=== PATIENT | male | born 1995 | race Caucasian/White ===

== ENCOUNTER 2017-01-30 11:54 | Emergency (ER) | payer BC ==
[2017-01-30 12:44] VITALS: PULSE 79; RESP 16; TEMP 97.7; O2SAT 98
[2017-01-30 12:45] VITALS: BP 120/69
== END 2017-01-30 16:23 | disposition left against medical advice (07) ==
DX: Z53.21 Procedure and treatment not carried out due to patient leaving prior to being seen by health care provider (principal)

== ENCOUNTER 2017-07-05 13:24 | Emergency (ER) | payer BC ==
[2017-07-05 13:27] VITALS: PULSE 92; TEMP 98.1; O2SAT 96
--- NOTE | 2017-07-05 14:11 | EDPHY ---
H & P Time Seen by Provider: 07/05/17 14:09 HPI/ROS: Chief complaint. Chest pain HPI. 22-year-old male here with tightness left anterior chest occasionally radiating to his left arm for 1 week. It has been constant. It is not worse with breathing, exertion, position. He has no shortness of breath. He has a history of GERD and he feels that this has some similar components that he has increased burping which is typical. However his previous GERD is not lasted so long. He has no change with eating. No abdominal pain nausea vomiting diarrhea. No unusual leg pain or swelling. No recent travel. Radiation to his left arm seems to be worse when he is smoking cigarettes. ROS Constitutional. no fever/chills, no weakness Eyes. no problems with vision ENT. no sore throat, no nasal drainage Cardiovascular. Left chest tightness Respiratory. no shortness of breath, no cough Abdominal. no abdominal pain, no nausea/vomiting, no diarrhea . no problems urinating MS. no calf pain/swelling, no neck/back pain, no joint pain Skin. no rash Lymph. no swollen glands Neuro. no headache, no dizziness, no difficulty walking or with speech Past Medical/Surgical History: GERD on Prilosec Family history negative for early coronary artery disease Social History: Single, daily smoker, no alcohol Smoking Status: Current some day smoker Physical Exam: General Appearance: Alert well-developed male mild distress. Vital signs are stable Eyes: Pupils equal and round no pallor or injection. ENT, Mouth: Mucous membranes are moist. Respiratory: There are no retractions, lungs are clear to auscultation. Cardiovascular: Regular rate and rhythm. Gastrointestinal: Abdomen is soft and nontender, no masses, bowel sounds normal. Neurological: Awake and alert, sensory and motor exams grossly normal. Skin: Warm and dry, no rashes. Musculoskeletal: Neck is supple nontender. Extremities symmetrical, full range of motion. Psychiatric: Patient is oriented X 3, there is no agitation. Constitutional: Initial Vital Signs Temperature (C) 36.7 C 07/05/17 13:26 Heart Rate 92 07/05/17 13:26 Respiratory Rate 16 07/05/17 13:26 Blood Pressure 146/98 H 07/05/17 13:26 O2 Sat (%) 96 07/05/17 13:26 O2 Delivery Mode Room Air Allergies/Adverse Reactions: No Known Allergies Allergy (Unverified 04/22/16 17:19) Home Medications: Medication Instructions Recorded [facility] 07/05/17 Medical Decision Making - Diagnostics EKG Interpretation: EKG interpreted by me shows normal sinus rhythm with normal interval and axis. QRS is normal there is no significant ST elevation or depression. No arrhythmia. Procedures: IV normal saline, monitor GI cocktail ED Course/Re-evaluation: Re-evaluation at 3:20 p.m.. Patient got good relief from the GI cocktail. He continues to have some burping but he says he feels much better and the chest discomfort is relieved within about 5 min of the GI cocktail. Patient and I discussed laboratory and EKG evaluation. We discussed treatment plan including criteria for return importance of follow-up and further evaluation. He expresses understanding and agreement Differential Diagnosis: I considered acute coronary syndrome and pulmonary embolus. However symptoms are consistent with patient's previous GERD. His symptoms are resolved with symptomatic treatment with GI cocktail. The patient has had a week of chest discomfort that is continuous. Normal troponin effectively rules out acute coronary syndrome - Data Points Laboratory Results: Laboratory Results 07/05/17 14:14 07/05/17 14:14 07/05/17 07/05/17 07/05/17 14:14 14:14 14:14 WBC 5.12 10^3/uL 10^3/uL (3.80-9.50) RBC 4.96 10^6/uL 10^6/uL (4.40-6.38) Hgb 15.4 g/dL g/dL (13.7-17.5) Hct 43.3 % % (40.0-51.0) MCV 87.3 fL fL (81.5-99.8) MCH 31.0 pg pg (27.9-34.1) MCHC 35.6 g/dL g/dL (32.4-36.7) RDW 11.9 % % (11.5-15.2) Plt Count 318 10^3/uL 10^3/uL (150-400) MPV 9.2 fL fL (8.7-11.7) Neut % (Auto) 59.7 % % (39.3-74.2) Lymph % (Auto) 27.9 % % (15.0-45.0) [place] % (Auto) 10.4 % % (4.5-13.0) Eos % (Auto) 0.8 % % (0.6-7.6) Baso % (Auto) 0.8 % % (0.3-1.7) Nucleat RBC Rel Count 0.0 % % (0.0-0.2) Absolute Neuts (auto) 3.06 10^3/uL 10^3/uL (1.70-6.50) Absolute Lymphs (auto) 1.43 10^3/uL 10^3/uL (1.00-3.00) Absolute Monos (auto) 0.53 10^3/uL 10^3/uL (0.30-0.80) Absolute Eos (auto) 0.04 10^3/uL 10^3/uL (0.03-0.40) Absolute Basos (auto) 0.04 10^3/uL 10^3/uL (0.02-0.10) Absolute Nucleated RBC 0.00 10^3/uL 10^3/uL (0-0.01) Immature Gran % 0.4 % % (0.0-1.1) Immature Gran # 0.02 10^3/uL 10^3/uL (0.00-0.10) D-Dimer < 0.27 ug/mLFEU ug/mLFEU (0.00-0.50) Sodium 142 mEq/L mEq/L (135-145) Potassium 4.5 mEq/L mEq/L (3.5-5.2) Chloride 107 mEq/L mEq/L (97-110) Carbon Dioxide 22 mEq/l mEq/l (22-31) Anion Gap 13 mEq/L mEq/L (8-16) BUN 15 mg/dL mg/dL (7-23) Creatinine 1.0 mg/dL mg/dL (0.7-1.3) Estimated GFR > 60 Glucose 101 mg/dL H mg/dL (70-100) Calcium 9.6 mg/dL mg/dL (8.5-10.4) Troponin I < 0.012 ng/mL ng/mL (0.000-0.034) Lipase 54 IU/L IU/L (23-300) Medications Given: Discontinued Medications Al Hydroxide/Mg Hydroxide (Maalox Susp) 30 ml PO ONCE ONE Stop: 07/05/17 14:25 Last Admin: 07/05/17 14:39 Dose: 30 ml Sodium Chloride (Ns) 1,000 mls @ 0 mls/hr IV EDNOW ONE; Wide Open PRN Reason: Protocol Stop: 07/05/17 14:25 Last Admin: 07/05/17 14:39 Dose: 1,000 mls Lidocaine (Lidocaine 2% Viscous) 15 ml PO ONCE ONE Stop: 07/05/17 14:25 Last Admin: 07/05/17 14:39 Dose: 15 ml Departure - Departure Disposition: Home, Routine, Self-Care Clinical Impression: GERD (gastroesophageal reflux disease) Qualifiers: Esophagitis presence: esophagitis presence not specified Qualified Code(s): K21.9 - Gastro-esophageal reflux disease without esophagitis Condition: Good Instructions: Gastroesophageal Reflux Disease (ED) Additional Instructions: Continue your Prilosec. Supplement especially at bedtime with antacid treatment such as Maalox or Mylanta. Return for worsening symptoms. Re- evaluation in 2 days if not improving Referrals: Izzy Burnett MD [Medical Doctor] - 2-3 days, if not improved
[2017-07-05] MEDS ORDERED: NS 1,000 ML IV ONE (14:24)
[2017-07-05] MEDS ORDERED: MAG HYDROX/AL HYDROX/SIMETH 30 ML UDCUP PO ONE (14:24)
[2017-07-05] MEDS ORDERED: LIDOCAINE 2% VISCOUS 15 ML UDCUP PO ONE (14:24)
[2017-07-05 14:34] LABS: PLATELET COUNT 318 10^3/uL (150-400)
[2017-07-05 16:07] VITALS: BP 113/56; RESP 63
--- NOTE | 2017-07-06 17:06 | CPEKG ---
Heart Rate: 83 RR Interval: 723 P-R Interval: 128 QRSD Interval: 94 QT Interval: 360 QTC Interval: 423 P [place]: 56 QRS [place]: 40 T Wave [place]: 24 EKG Severity - NORMAL ECG - EKG Impression: SINUS RHYTHM Electronically Signed By: Vasquez Love 08-Jul-2017 09:37:19
== END 2017-07-05 16:11 | disposition home or self-care (01) ==
DX: K21.9 Gastro-esophageal reflux disease without esophagitis (principal); E86.9 Volume depletion, unspecified; F17.200 Nicotine dependence, unspecified, uncomplicated

== ENCOUNTER 2017-08-14 11:10 | Emergency (ER) | payer BC ==
[2017-08-14 11:16] VITALS: BP 119/69; PULSE 65; RESP 16; TEMP 98.1; O2SAT 97
--- NOTE | 2017-08-14 11:25 | EDPHY ---
H & P Stated Complaint: Knee to L post head on Sunday;no LOC;intermittent numbness L side of face Time Seen by Provider: 08/14/17 11:24 HPI/ROS: HPI: This is a 22-year-old male who presents with Chief Complaint: Knee to L post head on Sunday;no LOC;intermittent numbness L side of face Location: Left trapezius/posterior ear Quality: Injury Duration: 3 days ago Signs and Symptoms: no fever, no nausea, no vomiting, no photophobia, no noise sensitivity, no neck stiffness, no ear pain, no tinnitus, no nasal congestion, no sinus pressure, no weakness, no radiation, no numbness Timing: Acute Severity: [id number] Context: Patient presents with complaints of left lateral neck soreness, nonradiating in nature accompanied by tenderness to palpation behind his left posterior ear status post accidentally hitting his with his friends layer rough housing in the park on Sunday. History of a 3 concussions in the past. Denies LOC/dizziness/nausea/vomiting/amnesia. Patient was ambulatory at the scene and continued to play sports in the park. He presents to the emergency room for evaluation as he has had continued soreness behind his left posterior ear and his left lateral neck. He has tried no [id number] medications. Modifying Factors: None Comment: ROS: see HPI Constitutional: No fever, no chills, no weight loss Eyes: No blurred vision Respiratory: No shortness of breath, no cough Cardiovascular: No chest pain, no palpitations Gastrointestinal: No nausea, no vomiting, no diarrhea, no hematemesis, no blood in stool Genitourinary: No dysuria, no blood in urine Extremities: No myalgias, no edema Neurologic: No weakness, no numbness Skin: No rashes, no petechiae Hematologic: No bruising, no bleeding MEDICAL/SURGICAL/SOCIAL HISTORY: Medical history: GERD Surgical history: Denies Social history: Student. CONSTITUTIONAL: Well-developed, well-nourished pleasant adult male, awake and alert, no obvious distress HEENT: Atraumatic and normocephalic. Tympanic membranes clear and intact. NECK: supple, moderate left trapezius reproducible tenderness in multiple areas ; no midline tenderness, flexion 45 degrees, extension 45 degrees, right and left lateral flexion 45 degrees. No meningismus. Cardiovascular: Normal S1/S2, regular rate, regular rhythm, without murmur rub or gallop. PULMONARY/CHEST: Symmetrical and nontender. no crepitus. Clear to auscultation bilaterally. Good air movement. No accessory muscle usage. ABDOMEN: Soft, nondistended, nontender, no ecchymosis. PELVIC: no pain with rocking; bilateral hips flexion 125 degrees, extension 30 degrees, with no pain internal rotation and no pain external rotation. BACK: No midline tenderness, no paraspinous spasm, deep tendon reflexes 2/2, no pain with straight leg raise EXTREMITIES: 2/2 pulses, strength 5/5, DIP/PIP/MCP flexion/extension intact with good light touch sensation. no deformities, no clubbing, no cyanosis or edema. NEUROLOGICAL: no focal neuro deficits. GCS 15. Light touch sensation intact. Cranial nerves 2-12 grossly intact. SKIN: Warm and dry, no erythema. no rash. Good capillary refill. Source: Patient Exam Limitations: No limitations - Personal History Current Tetanus Diphtheria and Acellular Pertussis (TDAP): Yes Tetanus Vaccine Date: < 10 years - Medical/Surgical History Hx Asthma: No Hx Chronic Respiratory Disease: No Hx Diabetes: No Hx Cardiac Disease: No Hx Renal Disease: No Hx Cirrhosis: No Hx Alcoholism: No Hx HIV/AIDS: No Hx Splenectomy or Spleen Trauma: No Other PMH: GERD. concussion - Social History Smoking Status: Current some day smoker Constitutional: Initial Vital Signs Temperature (C) 36.7 C 08/14/17 11:10 Heart Rate 65 08/14/17 11:10 Respiratory Rate 16 08/14/17 11:10 Blood Pressure 119/69 08/14/17 11:10 O2 Sat (%) 97 08/14/17 11:10 Allergies/Adverse Reactions: No Known Allergies Allergy (Verified 08/14/17 11:12) Home Medications: Medication Instructions Recorded Cyclobenzaprine [Flexeril 10 MG 10 mg PO TID PRN #10 tab 08/14/17 (*)] Omeprazole Magnesium [Prilosec] 10 mg PO 08/14/17 Medical Decision Making ED Course/Re-evaluation: No neurological deficits. Does not meet criteria per [place] Head CT/Cervical CT guidelines for imaging. Discussed with patient and he politely declines Head CT/Cervical CT scan. No signs of neurovascular compromise/tenting of skin/compartment syndrome/ extremities and joints examined above and below area of concern and are neurovascularly intact/TM rupture. Trapezius muscle strain/spasm noted on examination; given prescription for Flexeril would benefit for patient to follow up with concussion clinic as this would be his 3rd or 4th concussion. Concussion precautions advised. This patient was seen under the supervision of my secondary supervising physician. I evaluated care for this patient independently. Differential Diagnosis: Head injury including but not limited to concussion, skull fracture, intraparenchymal contusion, subarachnoid, subdural and epidural hematoma. Departure - Departure Disposition: Home, Routine, Self-Care Clinical Impression: Concussion Qualifiers: Encounter type: initial encounter Loss of consciousness presence/duration: without LOC Qualified Code(s): S06.0X0A - Concussion without loss of consciousness, initial encounter Head injury, closed, without LOC Qualifiers: Encounter type: initial encounter Qualified Code(s): S09.90XA - Unspecified injury of head, initial encounter Condition: Good Instructions: Post Concussion Syndrome (ED), Sports Concussion (ED) Additional Instructions: Observe concussion precautions. Please refrain from sports or contact activity until all symptoms have resolved. Drink plenty of fluids and rest as much as possible. Avoid eye strain wear sunglasses in the sunlight. Take Tylenol 650 mg every 4 hours and/or Ibuprofen 600 mg every 8 hours with food as needed for pain. Take Flexeril every 8 hr as needed for muscle spasms. Perform gentle stretching exercises of your neck muscles. It would benefit you to follow up with the concussion clinic. Return to the ER immediately if you have progressive headaches, neurologic deficits, gait abnormality, visual disturbance, slurred speech, or any other symptom that concerns you. Referrals: Danyelle Ramires MD [Medical Doctor] - As per Instructions Prescriptions: Cyclobenzaprine [Flexeril 10 MG (*)] 10 mg PO TID PRN #10 tab PRN Reason: Spasms
== END 2017-08-14 11:48 | disposition home or self-care (01) ==
DX: S06.0X0A Concussion without loss of consciousness, initial encounter (principal); F17.200 Nicotine dependence, unspecified, uncomplicated; W51.XXXA Accidental striking against or bumped into by another person, initial encounter; Y99.8 Other external cause status; Y93.83 Activity, rough housing and horseplay

== ENCOUNTER 2017-08-22 18:40 | Emergency (ER) | payer BC ==
--- NOTE | 2017-08-22 19:18 | EDPHY ---
H & P Time Seen by Provider: 08/22/17 19:06 HPI/ROS: CHIEF COMPLAINT: Left arm and left facial numbness HISTORY OF PRESENT ILLNESS: Patient is a 20-year-old male who presents emergency department with left arm left facial numbness. The patient states his left arm as intermittently become numb over the past few months. His left face has become numb over the past 2 weeks. The symptoms are intermittent. There are periods time he feels perfectly well. Patient does state that last week he was diagnosed with a concussion. Patient denies any headache. He has no weakness. No visual change. Patient has had no eye pain. No incoordination. REVIEW OF SYSTEMS: My complete review of systems is negative except as mentioned in the HPI. Past Medical/Surgical History: Includes concussion, GERD Past surgical history: Tonsillectomy Social history: Patient smokes cigarettes occasionally. He drinks alcohol intermittently. Occasionally uses THC. Smoking Status: Current some day smoker Physical Exam: Vitals noted GENERAL: Well-appearing, in no acute distress, alert. HEENT: Eyes normal to inspection, normal pharynx, no signs of dehydration. NECK: No thyromegaly, no lymphadenopathy, supple. RESPIRATORY: Clear to auscultation bilaterally, no rales, rhonchi or wheezing. CVS: Regular rate and rhythm, no rubs, murmurs, or gallops. ABDOMEN: Soft, nontender, nondistended, no organomegaly. BACK: Normal to inspection, no CVA tenderness. SKIN: Normal color, no rash, warm, dry. No pallor. EXTREMITIES: No pedal edema, no calf tenderness, no Homans sign or cords, no joint swelling. NEURO/PSYCH: Higher functions: Alert and Oriented x3. Normal speech and cognition. Normal mood and affect. Cranial nerves: Normal as tested. Cerebellar: Normal as tested. Good finger to nose, good [id number], normal gait. Peripheral exam: Normal motor exam. Normal sensation. Normal reflexes. Constitutional: Initial Vital Signs Temperature (C) 36.7 C 08/22/17 18:50 Heart Rate 78 08/22/17 18:50 Respiratory Rate 18 08/22/17 18:50 Blood Pressure 124/71 H 08/22/17 18:50 O2 Sat (%) 99 08/22/17 18:50 O2 Delivery Mode Room Air Allergies/Adverse Reactions: No Known Allergies Allergy (Verified 08/22/17 18:49) Home Medications: Medication Instructions Recorded Cyclobenzaprine [Flexeril 10 MG 10 mg PO TID PRN #10 tab 08/14/17 (*)] Omeprazole Magnesium [Prilosec] 10 mg PO 08/14/17 Medical Decision Making ED Course/Re-evaluation: In the emergency department discussed possible etiologies with the patient. I answered all his questions. Because he had a recent head trauma and numbness I will order head CT. I discussed this with the patient. Head CT: Please refer the dictated report. No acute disease noted. I discussed the results with the patient. I answered all his questions. He is given follow-up with Neurology. He will call make an appointment. Differential Diagnosis: My differential includes but is not limited to subarachnoid hemorrhage, subdural hematoma, epidural hematoma, CVA, dissection, aneurysm, MS Departure - Departure Disposition: Home, Routine, Self-Care Clinical Impression: Paresthesias Condition: Good Instructions: Paresthesia (ED) Additional Instructions: You need close follow-up with Neurology. Call tomorrow morning to make the appointment. Return to the emergency department with worsening symptoms or concerns. Referrals: Jeyson Mercado MD [Medical Doctor] - 5-7 days, call for appt.
[2017-08-22 20:28] VITALS: BP 132/76; PULSE 86; RESP 16; TEMP 99.1; O2SAT 95
== END 2017-08-22 20:27 | disposition home or self-care (01) ==
DX: R20.2 Paresthesia of skin (principal); F17.210 Nicotine dependence, cigarettes, uncomplicated

== ENCOUNTER 2017-08-25 14:56 | Emergency (ER) | payer BC ==
[2017-08-25 15:08] VITALS: O2SAT 98
--- NOTE | 2017-08-25 17:17 | EDPHY ---
H & P Time Seen by Provider: 08/25/17 17:02 HPI/ROS: CHIEF COMPLAINT: Weakness HISTORY OF PRESENT ILLNESS: Patient is a 22-year-old male who presents emergency department with progressive extremity weakness. He was seen in the emergency department by me recently. Please refer the dictated report. He followed up with Neurology yesterday. He was going to have an outpatient MRI per his report. Today he felt as though his initial weakness which was in his left arm is now progressed to his right arm. He off so feels as though all his extremities feel weak"like I just worked out." He has no visual change. No headache. No fever chills. No recent trauma. REVIEW OF SYSTEMS: My complete review of systems is negative except as mentioned in the HPI. Past Medical/Surgical History: Includes GERD, concussion Smoking Status: Current some day smoker Physical Exam: Vitals noted GENERAL: Well-appearing, in no acute distress, alert. HEENT: Eyes normal to inspection, normal pharynx, no signs of dehydration. NECK: No thyromegaly, no lymphadenopathy, supple. RESPIRATORY: Clear to auscultation bilaterally, no rales, rhonchi or wheezing. CVS: Regular rate and rhythm, no rubs, murmurs, or gallops. ABDOMEN: Soft, nontender, nondistended, no organomegaly. BACK: Normal to inspection, no CVA tenderness. SKIN: Normal color, no rash, warm, dry. No pallor. EXTREMITIES: No pedal edema, no calf tenderness, no Homans sign or cords, no joint swelling. NEURO/PSYCH: Higher functions: Alert and Oriented x3. Normal speech and cognition. Normal mood and affect. Cranial nerves: Normal as tested. Cerebellar: Normal as tested. Good finger to nose, good [id number], normal gait. Peripheral exam: Normal motor exam. Normal sensation. Normal reflexes. Constitutional: Initial Vital Signs Temperature (C) 37.1 C 08/25/17 15:06 Heart Rate 95 08/25/17 15:06 Respiratory Rate 18 08/25/17 15:06 Blood Pressure 122/80 H 08/25/17 15:06 O2 Sat (%) 98 08/25/17 15:06 O2 Delivery Mode Room Air Allergies/Adverse Reactions: No Known Allergies Allergy (Verified 08/25/17 15:05) Home Medications: Medication Instructions Recorded Cyclobenzaprine [Flexeril 10 MG 10 mg PO TID PRN #10 tab 08/14/17 (*)] Omeprazole Magnesium [Prilosec] 10 mg PO 08/14/17 Medical Decision Making - Diagnostics Imaging Results: Imaging Impressions Brain MRI 08/25/17 17:17 Impression: Normal MRI of the brain without and with contrast. Results called and discussed with Dr. Jazmín Cardenas at 08/25/2017 18:36. Cervical Spine MRI 08/25/17 17:17 Impression: Normal MRI cervical spine without and with contrast. ED Course/Re-evaluation: In the emergency department I discussed possible etiologies with the patient. I discussed case briefly with Dr. Mercado from Neurology. He recommended the patient undergo MRI imaging with without contrast. MRI of the brain/MRI C-spine: Please refer the dictated report by Dr. Sumner. No acute disease noted. I discussed the results with Dr. Mercado. He recommended the patient be discharged home for follow-up. I rechecked the patient and discussed his results. I answered all his questions. He had no focal findings on his exam. He is given warnings prior to leaving. He will return with worsening symptoms. Differential Diagnosis: My differential includes but is not limited to CVA, MS, peripheral neuropathy, Guillain-Seanor, demyelinating disease - Data Points Laboratory Results: Laboratory Results 08/25/17 18:30 08/25/17 18:30 08/25/17 08/25/17 18:30 18:30 WBC 7.68 10^3/uL 10^3/uL (3.80-9.50) RBC 5.04 10^6/uL 10^6/uL (4.40-6.38) Hgb 15.7 g/dL g/dL (13.7-17.5) Hct 43.8 % % (40.0-51.0) MCV 86.9 fL fL (81.5-99.8) MCH 31.2 pg pg (27.9-34.1) MCHC 35.8 g/dL g/dL (32.4-36.7) RDW 11.6 % % (11.5-15.2) Plt Count 347 10^3/uL 10^3/uL (150-400) MPV 8.8 fL fL (8.7-11.7) Neut % (Auto) 63.4 % % (39.3-74.2) Lymph % (Auto) 27.9 % % (15.0-45.0) [place] % (Auto) 7.2 % % (4.5-13.0) Eos % (Auto) 0.8 % % (0.6-7.6) Baso % (Auto) 0.4 % % (0.3-1.7) Nucleat RBC Rel Count 0.0 % % (0.0-0.2) Absolute Neuts (auto) 4.88 10^3/uL 10^3/uL (1.70-6.50) Absolute Lymphs (auto) 2.14 10^3/uL 10^3/uL (1.00-3.00) Absolute Monos (auto) 0.55 10^3/uL 10^3/uL (0.30-0.80) Absolute Eos (auto) 0.06 10^3/uL 10^3/uL (0.03-0.40) Absolute Basos (auto) 0.03 10^3/uL 10^3/uL (0.02-0.10) Absolute Nucleated RBC 0.00 10^3/uL 10^3/uL (0-0.01) Immature Gran % 0.3 % % (0.0-1.1) Immature Gran # 0.02 10^3/uL 10^3/uL (0.00-0.10) Sodium 143 mEq/L mEq/L (135-145) Potassium 3.9 mEq/L mEq/L (3.5-5.2) Chloride 110 mEq/L mEq/L (97-110) Carbon Dioxide 20 mEq/l L mEq/l (22-31) Anion Gap 13 mEq/L mEq/L (8-16) BUN 11 mg/dL mg/dL (7-23) Creatinine 0.9 mg/dL mg/dL (0.7-1.3) Estimated GFR > 60 Glucose 81 mg/dL mg/dL (70-100) Calcium 9.7 mg/dL mg/dL (8.5-10.4) Departure - Departure Disposition: Home, Routine, Self-Care Clinical Impression: Weakness, Paresthesias Condition: Good Instructions: Paresthesia (ED) Additional Instructions: The MRI of your brain and C-spine were negative. Follow up with Dr. Mercado from Neurology. Referrals: Jeyson Mercado MD [Medical Doctor] - 2-3 days without fail
[2017-08-25] MEDS ORDERED: GADOBUTROL 10 ML VIAL IVP ONE (17:21)
[2017-08-25 18:41] LABS: PLATELET COUNT 347 10^3/uL (150-400)
[2017-08-25 19:06] VITALS: RESP 16; TEMP 98.1
[2017-08-25 19:49] VITALS: BP 122/70; PULSE 68
== END 2017-08-25 19:49 | disposition home or self-care (01) ==
DX: R53.1 Weakness (principal); R20.2 Paresthesia of skin; F17.200 Nicotine dependence, unspecified, uncomplicated
CPT/HCPCS: A9585